=== PATIENT | male | born 2000 | race African-American/Black ===

== ENCOUNTER 2021-10-03 10:16 | Inpatient (IN) | payer OTHER ==
[~2021-10-03] VITALS: Ht 182.9 cm; Wt 138.8 kg
[2021-10-03] VITALS (22 sets, daily range): BP systolic 109–150; BP diastolic 60–109
[2021-10-03 10:57] LABS: CLARITY URINE CLEAR (CLEAR); COLOR URINE YELLOW (YELLOW); KETONES URINE 4+ (NEGATIVE); LEUKOCYTE ESTERASE URINE NEGATIVE (NEGATIVE); NITRITE URINE NEGATIVE (NEGATIVE); OCCULT BLOOD URINE TRACE (NEGATIVE); PROTEIN URINE 2+ (NEGATIVE); SPECIFIC GRAVITY URINE 1.037 (1.005-1.030); UROBILINOGEN URINE 0.2 E.U./dL (0.2-1.0)
[2021-10-03] MEDS ORDERED: SODIUM CHLORIDE 0.9% 1,000 ML IV ONE ×2 (12:00→13:15)
[2021-10-03 12:39] LABS: CHLORIDE 95 mEq/L (98-107)
[2021-10-03 12:42] LABS: HEMATOCRIT. 55.2 % (42.0-52.0); HEMOGLOBIN. 17.7 g/dL (14.0-18.0); LYMPHOCYTES % 19.2 % (20.0-50.0); MEAN CORPUSCULAR HEMOGLOBIN 26.6 pg (28.0-32.0); MEAN PLATELET VOLUME 9.7 fl (7.4-10.4); MONOCYTES % 6.6 % (2.0-8.0); NEUTROPHILS % 73.2 % (40.0-76.0); PLATELET 311 x1000/uL (130-400); RED BLOOD CELL COUNT 6.65 mill/uL (4.7-6.1); RED CELL DISTRIBUTION WIDTH 15.6 % (11.6-14.6)
[2021-10-03] MEDS ORDERED: INSULIN REGULAR (HUMULIN R) 300UNITS/3ML VIAL IV ONE (13:15)
[2021-10-03 14:11] LABS: BG BASE EXCESS -17.9 mmol/L (-2.0-2.0); BG CARBOXYHEMOGLOBIN 0.5 % (0.5-1.5); BG FRACTION INSPIRED OXYGEN 21; BG HCO3 ACT 7.8 mmol/L (22.0-26.0); BG METHEMOGLOBIN 0.4 % (0.0-1.5); BG OXYHEMOGLOBIN 97.1 % (94.0-97.0); BG PCO2 20.7 mmHg (35.0-45.0); BG PH 7.196 (7.350-7.450); BG PO2 122.4 mmHg (75.0-100.0); BG SAMPLE SITE RIGHT BRACHIAL; BG TOTAL HEMOGLOBIN 17.2 g/dL (12.0-18.0); BG VENT MODE ROOM AIR
[2021-10-03] MEDS ORDERED: LORAZEPAM 2MG/ML CPJ IV PRN (16:15)
[2021-10-03] MEDS ORDERED: DIPHENHYDRAMINE 50MG/ML VIAL IV PRN (16:15)
[2021-10-03] MEDS ORDERED: HYDRALAZINE 20MG/ML VIAL IV PRN (16:15)
[2021-10-03] MEDS ORDERED: ACETAMINOPHEN 325MG TABLET PO PRN (16:15)
[2021-10-03] MEDS ORDERED: MAGNESIUM/ALUMINUM HYDROXIDE/SIMETHICONE 30ML UDC PO PRN (16:15)
[2021-10-03] MEDS ORDERED: ONDANSETRON HCL 4MG/2ML INJ IV PRN (16:15)
[2021-10-03] MEDS ORDERED: CLONIDINE 0.1MG TABLET PO PRN (16:15)
[2021-10-03] MEDS ORDERED: IPRATROPIUM/ALBUTEROL 0.5-3(2.5)MG/3ML NEB HHN PRN (16:15)
[2021-10-03] MEDS ORDERED: GUAIFENESIN 200MG/10ML SUGAR FREE UDC PO PRN (16:15)
[2021-10-03] MEDS ORDERED: DEXTROSE 50% WATER 50ML SYRINGE IV PRN ×2 (16:15)
[2021-10-03] MEDS ORDERED: MORPHINE SULFATE 2 MG/ML CPJ (NOT FOR IM USE) IV PRN (16:15)
[2021-10-03] MEDS ORDERED: HYDROCODONE/ACETAMINOPHEN 5/325MG TABLET PO PRN (16:15)
[2021-10-03] MEDS ORDERED: DOCUSATE SODIUM 100MG CAPSULE PO PRN (16:15)
[2021-10-03 16:47] LABS: CHLORIDE 105 mEq/L (98-107)
[2021-10-03] MEDS: INSULIN REGULAR 100U/100ML PMX 100 ML IV SCH (17:03)
[2021-10-03] MEDS: BLOOD SUGAR DIAGNOSTIC STRIP TEST SCH ×8 (17:03→23:15)
[2021-10-03] MEDS: SODIUM CHLORIDE 0.45% 1,000 ML IV SCH ×2 (17:55→21:59)
[2021-10-03] MEDS: SODIUM CHLORIDE 0.9% INJ 3ML FLUSH IVF SCH (21:31)
[2021-10-03] MEDS: ENOXAPARIN 30MG/0.3ML SYR SUBCUT SCH (21:59)
[2021-10-03] MEDS ORDERED: DEXT 5%/0.45% NACL 1000ML 1,000 ML IV SCH (22:30)
[2021-10-04] VITALS (35 sets, daily range): BP systolic 97–160; BP diastolic 30–118
[2021-10-04] MEDS: BLOOD SUGAR DIAGNOSTIC STRIP TEST SCH ×13 (00:15→21:47)
[2021-10-04] MEDS: INSULIN REGULAR 100U/100ML PMX 100 ML IV SCH (04:48)
[2021-10-04] MEDS: SODIUM CHLORIDE 0.45% 1,000 ML IV SCH ×3 (05:35→17:06)
[2021-10-04 05:41] LABS: MEAN CORPUSCULAR HEMOGLOBIN 26.6 pg (28.0-32.0)
[2021-10-04 05:52] LABS: BASOPHILS % 0.8 % (0.0-2.0); EOSINOPHILS % 0.4 % (0.0-5.0); HEMATOCRIT. 48.9 % (42.0-52.0); MEAN CORPUSCULAR VOLUME 81.2 fL (80.0-94.0); MEAN PLATELET VOLUME 10.1 fl (7.4-10.4); MONOCYTES % 13.5 % (2.0-8.0); NEUTROPHILS % 59.3 % (40.0-76.0); PLATELET 207 x1000/uL (130-400); RED BLOOD CELL COUNT 6.02 mill/uL (4.7-6.1); RED CELL DISTRIBUTION WIDTH 14.6 % (11.6-14.6)
[2021-10-04] MEDS: SODIUM CHLORIDE 0.9% INJ 3ML FLUSH IVF SCH ×3 (05:54→22:39)
[2021-10-04 06:19] LABS: CHLORIDE 109 mEq/L (98-107)
[2021-10-04] MEDS: ENOXAPARIN 30MG/0.3ML SYR SUBCUT SCH ×2 (09:03→21:47)
[2021-10-04] MEDS ORDERED: DEXTROSE 50% WATER 50ML SYRINGE IV PRN (10:00)
[2021-10-04 10:10] LABS: BG BASE EXCESS -10.3 mmol/L (-2.0-2.0); BG CARBOXYHEMOGLOBIN 0.8 % (0.5-1.5); BG DEOXYHEMOGLOBIN 1.9 % (0.0-5.0); BG FRACTION INSPIRED OXYGEN 21; BG HCO3 ACT 13.9 mmol/L (22.0-26.0); BG METHEMOGLOBIN 0.5 % (0.0-1.5); BG OXYGEN SATURATION 98.1 % (92.0-98.5); BG OXYHEMOGLOBIN 96.8 % (94.0-97.0); BG PCO2 27.6 mmHg (35.0-45.0); BG PH 7.321 (7.350-7.450); BG PO2 98.8 mmHg (75.0-100.0); BG SAMPLE SITE RIGHT RADIAL; BG VENT MODE ROOM AIR
[2021-10-04] MEDS: INSULIN GLARGINE 100 UNITS/ML SUBCUT SCH (11:13)
[2021-10-04 11:29] LABS: CHLORIDE 108 mEq/L (98-107)
[2021-10-04] MEDS: INSULIN LISPRO 100 UNITS/ML SUBCUT SCH ×3 (12:06→21:49)
[2021-10-04] MEDS ORDERED: POTASSIUM CHLORIDE 20MEQ TABLET SR PO NR (22:30)
[2021-10-05] VITALS: BP 111/69
[2021-10-05] MEDS: SODIUM CHLORIDE 0.45% 1,000 ML IV SCH ×2 (02:24→09:33)
[2021-10-05 04:00] VITALS: BP 141/93
[2021-10-05] MEDS: SODIUM CHLORIDE 0.9% INJ 3ML FLUSH IVF SCH ×2 (06:07→14:00)
[2021-10-05] MEDS: BLOOD SUGAR DIAGNOSTIC STRIP TEST SCH ×2 (06:07→12:05)
[2021-10-05] MEDS: INSULIN LISPRO 100 UNITS/ML SUBCUT SCH ×2 (06:25→12:23)
[2021-10-05] MEDS: ENOXAPARIN 30MG/0.3ML SYR SUBCUT SCH (09:29)
[2021-10-05] MEDS: INSULIN GLARGINE 100 UNITS/ML SUBCUT SCH (09:31)
[2021-10-05 12:00] VITALS: BP 124/88
[2021-10-05 12:29] LABS: CHLORIDE 105 mEq/L (98-107)
[2021-10-05 15:52] VITALS: BP 118/79
[2021-10-05 17:41] VITALS: BP 138/72
[2021-10-05] MEDS ORDERED: ENOXAPARIN 40MG/0.4ML SYR SUBCUT SCH (21:00)
== END 2021-10-05 18:26 | disposition home or self-care (01) | DRG 420 ==
LOC: ER 10:16 → MICUSO 14:19 → ENRESERV 15:57 → 7EST 10-04 18:02
PROVIDERS: ADMIT Internal Medicine; ATTEND Internal Medicine
DX: E11.10 Type 2 diabetes mellitus with ketoacidosis without coma (principal); E66.9 Obesity, unspecified; E86.0 Dehydration; E87.6 Hypokalemia; J45.909 Unspecified asthma, uncomplicated; Z20.822 Contact with and (suspected) exposure to COVID-19; Z68.41 Body mass index [BMI] 40.0-44.9, adult; R10.9 Unspecified abdominal pain
CPT/HCPCS: 36415; 36600; 71045; 80048; 80053; 81003; 82010; 82375; 82805; 82962; 83036; 85025; 87426; 93005; 99291; J1650; J1815; J2405; J7030